=== PATIENT | male | born 1985 | race African-American/Black ===

== ENCOUNTER 2018-10-15 17:59 | Emergency (ER) | payer OTHER ==
[~2018-10-15] VITALS: Ht 175.3 cm; Wt 56.7 kg
[~2018-10-15 17:59] MED LIST: ALBU90OI INH; CEPH500 PO; Norco 5-325 Ta1 EACH PO; Prednisone20 MG PO
[2018-10-15] MEDS ORDERED: ERYT1OIN LEFTEYE (19:36)
[2018-10-15] MEDS ORDERED: ERYT1OIN BOTHEYES (20:08)
== END 2018-10-15 20:09 | disposition home or self-care (01) ==
LOC: ER 17:59
DX: T15.02XA Foreign body in cornea, left eye, initial encounter (principal); W45.8XXA Other foreign body or object entering through skin, initial encounter
CPT/HCPCS: 67938; 99282-25